=== PATIENT | male | born 1945 | race Caucasian/White ===

== ENCOUNTER → 2017-08-25 | Day surgery (SDC) | payer MEDICARE ==
[~2017-08-25] MED LIST: BREO ELIPTA INH; CLARINEX5 MG PO; FENTANYL CITRATE/PF 100MCG/2 ML INJ ONE; IVIG INFUSION IV; MIDAZOLAM HCL 2 MG/2 ML VIAL ONE; NEOMYCIN SULFA500 MG PO; NIACIN100 MG PO; PANTOPRAZOLE SO40 MG PO; PLAVIX75 MG PO; PRAVASTATIN SOD40 MG PO; SINGULAIR10 MG PO; TRAZODONE HCL50 MG PO; ZOLOFT50 MG PO
--- OUTSIDE RECORDS SUMMARY | 2017-08-25 11:19 | XMS REPORT | Clinical Summary ---
Author Author [facility] Organization [facility] Address Unknown Phone Unavailable Care Team Providers Care Valuer Name Role Phone Maxx Joseph DO PCP Allergies Not on File Current Medications Not on file Active Problems Not on file Encounters Date Type Specialty Care Team Description 10/17/2016 [facility] Pulmonology Lorie Zaldivar MD Obstructive chronic Encounter bronchitis without exacerbation 10/17/2016 Ancillary Access Lorie Day MD Obstructive chronic Orders bronchitis without exacerbation 10/09/2016 Transcribe Access Lorie Day MD Obstructive chronic Orders bronchitis without exacerbation (Primary Dx) after 08/24/2016 Social History Tobacco Use Types Packs/Day Years Used Date Never Assessed Sex Assigned at Date Recorded Not on file Last Filed Vital Signs Not on file Plan of Treatment Health Maintenance Due Date Last Done Comments COLONOSCOPY 1994 SHINGRIX VACCINE (#1) 1994 ZOSTER VACCINE 2004 PNEUMOCOCCAL 2009 POLYSACCHARIDE VACCINE AGE 65 AND OVER PNEUMOCOCCAL-13 2009 INFLUENZA VACCINE 11/25/2017 Procedures Procedure Name Priority Date/Time Associated Diagnosis Comments SPIROMETRY PRE AND POST Routine 10/17/2016 Obstructive chronic WITH BRONCHILATOR 2:50 PM CDT bronchitis without exacerbation PULMONARY FUNCTION TEST Routine 10/17/2016 Obstructive chronic 2:50 PM CDT bronchitis without exacerbation after 08/24/2016 Results * Spirometry pre & post w/ bronchodilator (10/17/2016 2:50 PM) * Pulmonary function test (10/17/2016 2:50 PM) after 08/24/2016 Insurance Payer Benefit Subscriber ID Type Phone Address Plan / Group MEDICARE MEDICARE xxxxxxxxxx Medicare [place], [place] PART A AND B AARP AARP xxxxxxxxxxx Commercial SUPPLEMENT [id number] [facility] [place] [phone]
--- NOTE | 2017-08-28 12:47 | Operative Report ---
DATE OF PROCEDURE: August 25, 2017 PREOPERATIVE DIAGNOSES 1. Dense cataract of the left eye. 2. Poor dilation of the left eye. POSTOPERATIVE DIAGNOSES 1. Dense cataract of the left eye. 2. Poor dilation of the left eye. PROCEDURE: Complicated phacoemulsification with posterior chamber intraocular lens. ANESTHESIA: MAC. COMPLICATIONS: None. LENS: Sorin [id number], 19.5-diopter lens. PROCEDURE IN DETAIL: The patient was taken to the operating room where the patient had 0.5% drops placed in the left eye. The patient's eye was then prepped and draped in the usual sterile ophthalmic fashion. A lid speculum was placed in the eye. A side-port incision was made, and 0.2 mL of 1% lidocaine preservative free was injected in the anterior chamber. An air bubble was placed in the anterior chamber, and Trypan Blue dye was used to stain the anterior capsule. BSS solution was used to irrigate the excess dye. Viscoelastic was placed in the anterior chamber. A keratome was used to make a temporal clear cornea incision. A cystotome and Utrata forceps were used to create an anterior capsulorrhexis without any complications. Hydrodissection and hydrodelineation were then performed. A phacoemulsification probe was placed in the eye, and the nucleus was phacoemulsified using the mxoiyw-[id number]-xyodukf technique. Irrigation and aspiration handpiece was then used to remove any residual cortical material. There was still a little bit of cortical material that would not seem to get removed in the periphery. Centrally the capsule was clear. The patient has a history of a vitrectomy and did not want to tear the capsule. Viscoelastic was placed in the capsular bag. An Sorin SN60WF, 19.5-diopter lens was placed into the bag without any complications. Prior to the start of the procedure, we also placed a Malyugin ring that was centered well. The irrigation and aspiration handpiece was used to remove the residual viscoelastic material from the eye. The Malyugin ring was then removed. Miostat was injected into the anterior chamber. The wound was checked to make sure there was no evidence of leakage. Two drops of Vigamox were placed in the eye, along with patch and a Phan shield on the eye. The patient tolerated the procedure well and will be seen in my office tomorrow. Job#: [id number] MH
== END | disposition home or self-care (01) ==
LOC: OR 11:17
PROVIDERS: ATTEND Ophthalmology
DX: H25.12 Age-related nuclear cataract, left eye (principal); J44.9 Chronic obstructive pulmonary disease, unspecified; I25.10 Atherosclerotic heart disease of native coronary artery without angina pectoris; Z79.02 Long term (current) use of antithrombotics/antiplatelets; Z88.1 Allergy status to other antibiotic agents; Z88.3 Allergy status to other anti-infective agents; Z88.2 Allergy status to sulfonamides
CPT/HCPCS: 66982; J1642; J2250

== ENCOUNTER → 2018-05-04 | Day surgery (SDC) | payer MEDICARE ==
[2018-04-30 13:12] LABS: BASOPHILS % 0.4 % (0.0-1.0); EOSINOPHILS # (AUTO) 0.3 (0.0-0.4); EOSINOPHILS % 3.8 % (0.0-6.0); HEMATOCRIT 42.1 % (38.2-49.6); HEMOGLOBIN 14.7 g/dL (14.0-18.0); LYMPHOCYTES # (AUTO) 1.5 (1.0-3.2); LYMPHOCYTES % 21.1 % (18.0-39.1); MEAN CORPUSCULAR HEMOGLOBIN 32.5 pg (28-32); MEAN CORPUSCULAR HGB CONC 34.9 g/dL (31-35); MEAN CORPUSCULAR VOLUME 93.1 fL (81-99); MONOCYTES # (AUTO) 0.4 (0.2-0.8); MONOCYTES % 5.9 % (4.4-11.3); NEUTROPHILS # (AUTO) 4.9 (2.1-6.9); NEUTROPHILS % 68.5 % (38.7-80.0); PLATELET COUNT 188 x10e3/uL (140-360); RED BLOOD COUNT 4.52 x10e6/uL (4.3-5.7); RED CELL DISTRIBUTION WIDTH 12.9 % (11.7-14.4)
[~2018-05-04] MED LIST changes: +ADVAIR 250-501 EACH INH; -FENTANYL CITRATE/PF 100MCG/2 ML INJ ONE; +GABAPENTIN400 MG PO; +HEPARIN 500 UNITS/5ML MDV INJ NR; +MELATONIN3 M1; +PROPOFOL IV EMULSION 10 MG/ML 50 ML VIAL ONE; +SPIRIVA18 MCG INH
--- OUTSIDE RECORDS SUMMARY | 2018-05-04 10:10 | XMS REPORT | Clinical Summary ---
Author Author [facility] Address Unknown Phone Unavailable Care Team Providers Care Event Staff Name Role Phone Denins Joseph DO PCP Allergies Not on File Medications Not on file Active Problems Not on file Encounters Care Team Description Date Type Specialty Dennis Joseph DO Constipation, unspecified constipation type 04/06/2018 Hospital Radiology Encounter Dennis Joseph DO Constipation, unspecified constipation type (Primary Dx) 04/06/2018 Transcribe Access Orders after 05/03/2017 Social History Date Tobacco Use Types Packs/Day Years Used Never Assessed Sex Assigned at Date Recorded Not on file Industry Job Start Date Occupation Not on file Not on file Not on file Travel End Travel History Travel Start No recent travel history available. Last Filed Vital Signs Not on file Plan of Treatment Health Maintenance Due Date Last Done Comments COLON CANCER SCREENING 1994 SHINGLES VACCINES (1994 2) PNEUMOCOCCAL 2009 POLYSACCHARIDE VACCINE AGE 65 AND OVER PNEUMOCOCCAL-13 2009 INFLUENZA VACCINE 11/25/2017 01/25/2016 Procedures Comments Procedure Name Priority Date/Time Associated Diagnosis XR ABDOMEN ACUTE INC Routine 04/06/2018 Constipation, unspecified CHEST 11:34 AM GAME MANAGER constipation type after 05/03/2017 Results * XR Abdomen Acute Inc Chest (04/06/2018 11:34 AM GAME MANAGER) Narrative Performed At EXAMINATION:XR ABDOMEN ACUTE INC CHEST [facility] CLINICAL HISTORY:K59.00 Constipationunspecified, k59.00 COMPARISON:None. IMPRESSION: Chest: The lungs are clear The heart is nonenlarged Postoperative changes in the lumbar spine Abdomen: There is a nonspecific bowel gas pattern Phleboliths are present in the pelvis. Postoperative changes in the lumbar spine [id number] Procedure Note Hm Interface, Radiology Results Incoming - 04/06/2018 2:39 PM GAME MANAGER EXAMINATION: XR ABDOMEN ACUTE INC CHEST CLINICAL HISTORY: K59.00 Constipation unspecified, k59.00 COMPARISON: None. IMPRESSION: Chest: The lungs are clear The heart is nonenlarged Postoperative changes in the lumbar spine Abdomen: There is a nonspecific bowel gas pattern Phleboliths are present in the pelvis. Postoperative changes in the lumbar spine [id number] Performing Organization Address City/State/Zipcode Phone Number [facility] [phone] [place] [address] after 05/03/2017 Insurance Payer Benefit Subscriber ID Type Phone Address Plan / Group MEDICARE MEDICARE xxxxxxxxxxx Medicare [place], [place] PART A AND B AARP AARP xxxxxxxxxxx Commercial SUPPLEMENT Advance Directives Patient has advance care planning documents on file. For more information, harsh wolf contact: Marcos Oden [address] [place] [address]
[2018-05-04 13:30] VITALS: BP 120/74
== END | disposition home or self-care (01) ==
LOC: OR 10:08
PROVIDERS: ATTEND Internal Medicine Gastroenterology
DX: K59.09 Other constipation (principal); D12.3 Benign neoplasm of transverse colon; D12.4 Benign neoplasm of descending colon; K57.30 Diverticulosis of large intestine without perforation or abscess without bleeding; K64.8 Other hemorrhoids; K59.03 Drug induced constipation; K21.9 Gastro-esophageal reflux disease without esophagitis; I25.810 Atherosclerosis of coronary artery bypass graft(s) without angina pectoris; I25.2 Old myocardial infarction; E78.5 Hyperlipidemia, unspecified; J44.9 Chronic obstructive pulmonary disease, unspecified; T50.995A Adverse effect of other drugs, medicaments and biological substances, initial encounter; Z88.1 Allergy status to other antibiotic agents; Z88.3 Allergy status to other anti-infective agents; Z88.2 Allergy status to sulfonamides; Z01.812 Encounter for preprocedural laboratory examination; Z79.02 Long term (current) use of antithrombotics/antiplatelets; Z95.1 Presence of aortocoronary bypass graft; Z86.73 Personal history of transient ischemic attack (TIA), and cerebral infarction without residual deficits; Z87.891 Personal history of nicotine dependence; Z80.0 Family history of malignant neoplasm of digestive organs
CPT/HCPCS: 36415; 45384; 85025; 88305; J2250; 45378